=== PATIENT | male | born 1985 ===

== ENCOUNTER 2021-11-20 23:23 | Inpatient (IN) ==
[2021-11-20] MEDS ORDERED: LORazepam 2 MG/1 ML VIAL ONE (23:33)
[2021-11-20] MEDS ORDERED: LORazepam 2 MG/1 ML VIAL IM STA (23:45)
[2021-11-21] MEDS ORDERED: ROCURONIUM 100 MG/10 ML VIAL IV ONE (00:21)
[2021-11-21] MEDS ORDERED: ETOMIDATE 20 MG/10 ML VIAL IV ONE (00:21)
[2021-11-21 00:27] LABS: Albumin 4.1 G/DL (3.4-5.0); Bilirubin,Total 0.4 MG/DL (0.20-1.00); Calcium 9.3 MG/DL (8.5-10.1); Osmolality,Calculated 279.4 MOS/KG (273-304); Potassium 3.1 MMOL/L (3.5-5.1); Total Protein 8.9 G/DL (6.4-8.2)
[2021-11-21 00:34] LABS: Basophils # 0.1 10*3/uL (0.0-0.2); Basophils % 0.4 % (0.0-0.8); Eosinophils # 0.2 10*3/uL (0.0-0.87); Eosinophils % 1.3 % (0.00-10.9); Hemoglobin 16.5 GM/DL (14.0-18.0); Immature Granulocytes % 0.3 %; Immature Granulocytes Absolute 0.04 #; Lymphocytes # 5.1 10*3/uL (1.4-4.0); Lymphocytes % 43.4 % (21.2-54.2); Mean Corpuscular HGB Conc 33.7 GM/DL (32-36); Mean Corpuscular Volume 89.7 FL (87-102); Mean Platelet Volume 9.6 FL (9.6-12.0); Monocytes % 8.2 % (1.7-12.7); Neutrophils % 46.4 % (38.7-73.9); Platelet Count 333 T/CUMM (130-400); Red Blood Count 5.46 MC/CUMM (3.8-5.5); Red Cell Distribution Width 12.9 % (9.3-17.3); White Blood Count 11.8 T/CUMM (4-12)
[2021-11-21 00:50] LABS: INR 0.9; PT Patient Result 10.3 SECS (10.1-12.1); Partial Thromboplastin Time 21.2 SECS (23.7-32.9)
[2021-11-21 00:55] LABS: Barbiturates Screen,Urine Negative (Negative); Benzodiazepines Screen,Urine Negative (Negative); Cannabinoid Screen,Urine Negative (Negative); Opiate Screen,Urine Negative (Negative); Phencyclidine Screen,Urine Negative (Negative)
[2021-11-21 01:01] LABS: Eosinophils 2 % (0-10); Lymphocytes 43 % (20-55); Total Cells Counted 100
[2021-11-21 01:02] LABS: Platelet Estimate Adequate
[2021-11-21] MEDS ORDERED: MORPHINE 2 MG/1 ML SYRINGE IV PRN (01:17)
[2021-11-21] MEDS ORDERED: ALBUTEROL 2.5 MG/3 ML NEB RESP TX PRN (01:17)
[2021-11-21] MEDS ORDERED: ONDANSETRON 4 MG/2 ML VIAL IV PRN (01:17)
[2021-11-21] MEDS ORDERED: PANTOPRAZOLE 40 MG VIAL IV SCH (01:30)
[2021-11-21] MEDS ORDERED: POTASSIUM CHLORIDE 20 MEQ TABLET PO SCH (01:30)
[2021-11-21] MEDS ORDERED: MIDAZOLAM 100 MG in SODIUM CHLORIDE 0.9% 80 ML IV PRN (03:37)
[2021-11-21] MEDS ORDERED: MIDAZOLAM 10 MG/2 ML VIAL IV STA (03:40)
[2021-11-21] MEDS: POTASSIUM BICARB EFFERVESCENT 20 MEQ TAB.EFF PO SCH ×3 (03:45→12:29)
[2021-11-21 04:16] LABS: ABG Base Excess -5.7 MMOL/L (-2.5-2.5); ABG HCO3 19.9 MMOL/L (20-26); ABG Oxygen Saturation 99.5 % (95-100); ABG PCO2 43.9 MM HG (35-48); ABG PH 7.289 (7.35-7.45); ABG TCO2 18.3 MMOL/L (23-27)
[2021-11-21 04:46] LABS: Calcium 8.4 MG/DL (8.5-10.1); Osmolality,Calculated 280.3 MOS/KG (273-304); Potassium 3.7 MMOL/L (3.5-5.1)
[2021-11-21] MEDS ORDERED: ENOXAPARIN 40 MG/0.4 ML SYRINGE SUBCUT SCH (09:00)
[2021-11-21] MEDS ORDERED: LACTATED RINGERS 1,000 ML IV SCH (09:00)
[2021-11-21] MEDS ORDERED: FOLIC ACID 1 MG TABLET PO SCH (09:00)
[2021-11-21] MEDS ORDERED: THIAMINE 100 MG TABLET PO SCH (09:00)
[2021-11-21 15:44] VITALS: BP 112/77
== END 2021-11-21 16:24 | disposition home or self-care (01) | DRG 896 ==
LOC: EDBD 23:23 → N.ED 23:23 → SUATTDRO 11-21 01:17 → N.EDINP 11-21 01:17
PROVIDERS: ADMIT Internal Medicine; ATTEND Internal Medicine